=== PATIENT | male | born 1975 | race African-American/Black ===

== ENCOUNTER 2021-12-30 13:18 | Emergency (ER) | payer OTHER ==
[2021-12-30] MEDS ORDERED: DICLOFENAC SODI75 MG PO (15:52)
[2021-12-30] MEDS ORDERED: AMOXICILLIN500 MG PO (15:52)
== END 2021-12-30 17:22 | disposition home or self-care (01) ==
LOC: FER 13:18
DX: K04.7 Periapical abscess without sinus (principal); I10 Essential (primary) hypertension; E11.9 Type 2 diabetes mellitus without complications; Z88.6 Allergy status to analgesic agent; Z88.2 Allergy status to sulfonamides; Z79.84 Long term (current) use of oral hypoglycemic drugs
CPT/HCPCS: J1885